=== PATIENT | female | born 1950 | race Caucasian/White ===

== ENCOUNTER → 2017-02-03 | Outpatient (CLI) | payer OTHER, MEDICARE ==
[~2017-02-03] MED LIST: ASPI81TA28 PO; CALC-51 PO; CLR10 PO; ENAL20TA PO; FENO48TA9 PO; HYDR-5688 PO; OMEG10007 PO; PRLSR20 PO; SIMV20TA2 PO
[2017-02-03 13:28] LABS: BASO % 0.3 %; BASO ABS # 0.03 K/uL (0-0.2); COMPLETE YES; EOS % 2.6 %; HEMATOCRIT 41.3 % (37-47); IG% 0.3 %; LYMPH % 28.7 %; LYMPH ABS # 2.75 K/uL (1.2-3.4); MEAN CELL VOLUME 93.7 fL (80-100); MEAN CORPUSCULAR HEMOGLOBIN 30.6 pg (25-34); MEAN CORPUSCULAR HGB CONC 32.7 g/dl (32-36); MONO % 3.3 %; NEUT % 64.8 %; PLATELET COUNT 455 K/uL (130-400); RED BLOOD COUNT 4.41 M/uL (4.2-5.4); WHITE BLOOD COUNT 9.57 K/uL (4.8-10.8)
[2017-02-03 13:56] LABS: BLOOD UREA NITROGEN 12 mg/dl (7-18); BUN/CREATININE RATIO 12.3 (10-20); CALCIUM 9.5 mg/dl (8.5-10.1); CARBON DIOXIDE 28 mmol/L (21-32); CHLORIDE 105 mmol/L (98-107); GLUCOSE 232 mg/dl (70-99); POTASSIUM 3.6 mmol/L (3.5-5.1); SODIUM 139 mmol/L (136-145)
== END | disposition home or self-care (01) ==
LOC: C.CPL 12:52
PROVIDERS: ATTEND Orthopaedic Surgery
DX: M25.562 Pain in left knee (principal)

== ENCOUNTER → 2017-02-13 | Day surgery (SDC) | payer OTHER, MEDICARE ==
[2017-02-11 09:02] VITALS: Ht 162.6 cm; Wt 68.2 kg
[~2017-02-13] VITALS: Ht 162.6 cm; Wt 68.2 kg
[~2017-02-13] MED LIST changes: +ATROPINE SULFATE 0.1 MG/ML 5ML SYR IV PRN; +CEFAZOLIN 2000 MG/60 ML D5W IV SCH; +DEXAMETHASONE SOD INJ 4 MG/ML VIAL ONE; +EpHEDrine SULFATE INJ 50 MG/ML AMP IV PRN; +EpINEphrine INJ 1MG/ML AMP 1 MG/ML AMP ONE; +FENTANYL CITRATE INJ 50 MCG/1 ML 2 ML VIAL IV PRN; +FENTANYL CITRATE INJ 50 MCG/1 ML 2 ML VIAL ONE; +HYDROCODONE/ACETAMOPHEN 5/325MG TAB PO PRN; +HYDROmorphone INJ 1 MG/ML SYR IV PRN; +KETOROLAC TROMETHAMINE 30 MG/ML VIAL ONE; +LACTATED RINGER'S 1000ML 1,000 ML IV SCH; +LIDOCAINE HCL 2% 2 ML VIAL (20MG/ML) ONE; +MIDAZOLAM HCL 1 MG/ML 2ML VIAL ONE; +ONDANSETRON INJ 2 MG/ML 2 ML VIAL IV PRN; +ONDANSETRON INJ 2 MG/ML 2 ML VIAL ONE; +PROPOFOL IV EMULSION 10 MG/ML 20 ML VIAL IV ONE; +ROPIVACAINE 0.5% 5 MG/ML 30 ML VIAL ONE; +SODIUM CHLORIDE 0.9% 1000ML 1,000 ML IV SCH
--- NOTE | 2017-02-13 06:47 | History & Physical Bridge - [place] ---
H&P Re-Evaluation Bridge Note: I have examined the patient, reviewed the History & Physical and in the interval since the performance of the History & Physical I have noted the following changes of clinical significance: No changes noted
--- NOTE | 2017-02-13 07:41 | Discharge Instructions-SurgCtr ---
Discharge Instructions Date of Service Feb 13, 2017. Visit Reason for Visit: Left Knee Synovitis, Pain Discharge Discharge Diagnosis / Problem: SAME ABOVE Discharge Goals Goal(s): Decrease discomfort, Improve function Medications Stopped Medications Name(s): fish oil, last dose 02/13/17 Restart Stopped Medication(s): MAY RESTART 02/13/2017 Activity Recommendations Activity Limitations: as noted below Lifting Limitations: gradually increase as tolerated Exercise/Sports Limitations: gradually increase as tolerated Weightbearing Status: Left weightbearing (as tolerated) Anesthesia . Post Anesthesia Instructions: If you have had General Anesthesia or IV Sedation: * Do not drive today. * Resume driving when surgeon permits. * Do not make important decisions or sign legal documents today. * Call surgeon for: 1. Temperature elevations greater than 101 degrees F. 2. Uncontrollable pain. 3. Excessive bleeding. 4. Persistent nausea and vomiting. 5. Medication intolerance (nausea, vomiting or rash). * For nausea and vomiting use only clear liquids such as: tea, soda, bouillon until nausea subsides, then gradually increase diet as tolerated. * If you have any concerns or questions, call your surgeon's office. If physician is unavailable and it is an emergency, call 911 or go to the nearest emergency room. . Instructions / Follow-Up Instructions / Follow-Up MEDICATIONS: * Resume previous medications unless instructed otherwise by your surgeon. * Always take pain medication on a full stomach or with food to avoid upset stomach. * Do not drink alcohol or drive while taking narcotics. * Ibuprofen or Tylenol may be taken if narcotic not needed. SPECIAL CARE INSTRUCTIONS: __ None _X_ Keep extremity elevated and iced x 48 hours; apply ice 20-30 minutes 8-10 times/day. May remove at night. _X_ Crutches _X_ May discard when able __ Brace/Post-op shoe __ 24 hrs/day __ Remove at night _X_ Dressing __ Maintain until seen in office, may shower with plastic over site _X_ Remove dressings in 24-48 hours and then may shower _X_ Cover incisions with band-aids after showering __ Do not remove steri-strips Call physician if chills or temperature rises above 102 degrees or pain unrelieved by prescribed pain medications. Office [phone] Diet Recommendations Home Diet: no limitations Fluid Restriction: None Procedures Procedures Performed: Left Knee Arthroscopic Extensive Debridement Pending Studies Studies pending at discharge: no Work Instructions Return To Work: after follow-up Medical Emergencies . Who to Call and When: Medical Emergencies: If at any time you feel your situation is an emergency, please call 911 immediately. . Non-Emergent Contact Non-Emergency issues call your: Primary Care Provider Call Non-Emergent contact if: you have a fever, temperature is above 101.5 . . "Provider Documentation" section prepared by Luiz Zuniga. .
--- NOTE | 2017-02-13 07:52 | OPERATIVE REPORT ---
DATE OF OPERATION: 02/13/2017 PREOPERATIVE DIAGNOSIS: Fat pad impingement, possible lateral meniscal tear of the left knee. POSTOPERATIVE DIAGNOSIS: Anterior lateral fat pad impingement of the left knee without evidence of meniscus tear. PROCEDURE: Left knee diagnostic arthroscopy with extensive synovectomy. SURGEON: Dr. Praveen Collazo. METAL FABRICATOR HELPER: Parvez Zuniga PA-C, whose assistance was necessary for positioning of the knee and helping with instrumentation. ANESTHESIA: General. COMPLICATIONS: None. CONDITION: Stable to PACU. INDICATIONS: Azra is a pleasant 66-year-old female who presented to my office with chronic left knee pain. All of her pain was located over the anterolateral fat pad region. It hurt to palpation. Cortisone injections helped briefly but her pain always returned. She is unable to get an MRI because of a pacemaker. After failing several years of conservative treatment, she elected to undergo arthroscopy. OPERATION AND FINDINGS: On 02/13/2017 she arrived at [facility] for the above procedure. She was seen in the preoperative holding area and the operative extremity was identified and signed. She was taken back to the operating room and put under general anesthesia. The left knee was prepped and draped in sterile fashion. Time-out was done and the patient and operative extremity was properly identified. A scope was introduced in the lateral parapatellar portal. Diagnostic arthroscopy showed no loose bodies in the suprapatellar pouch. There was minimal synovitis there. The patella and the trochlea looked good. There was synovitis involving the entire fat pad mostly in the anterior lateral aspect. The scope was brought into the medial compartment. A medial parapatellar portal was made under direct visualization and a probe was used to probe the medial meniscus. The medial meniscus was intact. The cartilage was intact on the medial side. A scope was brought in the trochlea. ACL and PCL were intact. The scope was brought into lateral compartment. The lateral meniscus was intact and the cartilage was all intact. There was a lot of redness and inflammation of the anterolateral fat pad. A shaver was used to start a synovectomy. Time was spent removing only the inflamed portions of the fat pad in the anterolateral aspect and taking time to inspect the lateral gutter. The knee was brought into full extension and time was spent removing any synovitis that was getting impinged within the patellofemoral joint. The scope was then placed in the medial parapatellar portal. Repeat diagnostic arthroscopy showed further synovitis. A shaver was used to only remove the inflamed tissue. I removed as little fat pad as possible. Final diagnostic arthroscopy showed no additional pathology. Arthroscopic instruments were removed from the knee. Portal sites were closed with 3-0 nylon. The knee was injected with 30 mL of Naropin with epinephrine and Toradol. She was then placed in a soft compressive dressing, extubated, transferred to a [facility] and taken to the postanesthesia care unit in stable condition. She tolerated the procedure well. I attest to the content of the Intraoperative Record and any orders documented therein. Any exceptions are noted below. JUNIOR
[2017-02-13 08:29] VITALS: TEMP 36.4
[2017-02-13 09:01] VITALS: BP 145/75; PULSE 82; O2SAT 95
--- NOTE | 2017-02-13 09:31 | Anesthesiology Progress Note ---
Anesthesia Post Op Note Date & Time Feb 13, 2017 at 09:31 Vital Signs Pain Intensity: 0 Vital Signs Past 12 Hours Date Time Temp Pulse Resp B/P (MAP) Pulse Ox O2 Delivery O2 Flow Rate FiO2 02/13/17 09:01 82 16 145/75 (98) 95 Room Air 02/13/17 08:29 36.4 79 16 131/73 (92) 95 Room Air 02/13/17 08:20 36.4 02/13/17 08:17 82 18 97 02/13/17 08:17 83 18 02/13/17 08:16 Room Air 02/13/17 08:15 146/77 (92) 02/13/17 08:12 87 17 96 02/13/17 08:12 92 17 02/13/17 08:10 150/72 (89) 02/13/17 08:07 95 11 98 02/13/17 08:07 97 11 02/13/17 08:05 131/67 (86) 02/13/17 08:02 88 16 98 02/13/17 08:02 87 16 02/13/17 08:00 135/71 (82) 02/13/17 07:57 86 17 02/13/17 07:57 85 17 98 02/13/17 07:55 128/67 (85) 02/13/17 07:52 90 12 02/13/17 07:52 89 12 97 02/13/17 07:50 134/66 (77) 02/13/17 07:47 93 18 02/13/17 07:47 93 18 97 02/13/17 07:45 132/67 (85) 02/13/17 07:42 99 14 96 02/13/17 07:42 99 14 02/13/17 07:41 134/68 (86) 02/13/17 07:39 36.2 99 16 02/13/17 06:29 36.7 72 22 147/75 (99) 94 Room Air Notes Mental Status: alert / awake / arousable, participated in evaluation Pt Amnestic to Procedure: Yes Nausea / Vomiting: adequately controlled Pain: adequately controlled Airway Patency, RR, SpO2: stable & adequate BP & HR: stable & adequate Hydration State: stable & adequate Anesthetic Complications: no major complications apparent
--- NOTE | 2017-02-13 12:43 | [facility] Post Operative Brief Note ---
Immediate Operative Summary Operative Date Feb 13, 2017. Pre-Operative Diagnosis Left Knee Synovitis, Pain Post-Operative Diagnosis Same Procedure(s) Performed Left Knee Arthroscopic Extensive Debridement Surgeon Dr. Collazo Theatre Professor Surgeon(s) Anabelle Zuniga PA-C Estimated Blood Loss 5ml Findings as above Specimens None Complication(s) None Disposition Recovery Room / PACU
== END | disposition home or self-care (01) ==
LOC: X.SURG 06:09
PROVIDERS: ATTEND Orthopaedic Surgery
DX: M25.862 Other specified joint disorders, left knee (principal); I10 Essential (primary) hypertension; E78.00 Pure hypercholesterolemia, unspecified

== ENCOUNTER → 2017-04-02 | Outpatient (CLI) | payer OTHER, MEDICARE ==
[~2017-04-02] MED LIST changes: -ATROPINE SULFATE 0.1 MG/ML 5ML SYR IV PRN; -CEFAZOLIN 2000 MG/60 ML D5W IV SCH; -CLR10 PO; -DEXAMETHASONE SOD INJ 4 MG/ML VIAL ONE; -EpHEDrine SULFATE INJ 50 MG/ML AMP IV PRN; -EpINEphrine INJ 1MG/ML AMP 1 MG/ML AMP ONE; -FENTANYL CITRATE INJ 50 MCG/1 ML 2 ML VIAL IV PRN; -FENTANYL CITRATE INJ 50 MCG/1 ML 2 ML VIAL ONE; -HYDROCODONE/ACETAMOPHEN 5/325MG TAB PO PRN; -HYDROmorphone INJ 1 MG/ML SYR IV PRN; -KETOROLAC TROMETHAMINE 30 MG/ML VIAL ONE; -LACTATED RINGER'S 1000ML 1,000 ML IV SCH; -LIDOCAINE HCL 2% 2 ML VIAL (20MG/ML) ONE; -MIDAZOLAM HCL 1 MG/ML 2ML VIAL ONE; -ONDANSETRON INJ 2 MG/ML 2 ML VIAL IV PRN; -ONDANSETRON INJ 2 MG/ML 2 ML VIAL ONE; -PROPOFOL IV EMULSION 10 MG/ML 20 ML VIAL IV ONE; -ROPIVACAINE 0.5% 5 MG/ML 30 ML VIAL ONE; -SODIUM CHLORIDE 0.9% 1000ML 1,000 ML IV SCH
[2017-04-02 13:14] LABS: BASO % 0.5 %; BASO ABS # 0.05 K/uL (0-0.2); COMPLETE YES; EOS % 2.2 %; HEMATOCRIT 41.5 % (37-47); IG% 0.2 %; LYMPH % 27.1 %; LYMPH ABS # 2.47 K/uL (1.2-3.4); MEAN CELL VOLUME 90.6 fL (80-100); MEAN CORPUSCULAR HEMOGLOBIN 30.6 pg (25-34); MEAN CORPUSCULAR HGB CONC 33.7 g/dl (32-36); MEAN PLATELET VOLUME 10.7 fL (7.4-10.4); MONO % 9.8 %; NEUT % 60.2 %; PLATELET COUNT 477 K/uL (130-400); RED BLOOD COUNT 4.58 M/uL (4.2-5.4); WHITE BLOOD COUNT 9.11 K/uL (4.8-10.8)
[2017-04-02 13:51] LABS: BLOOD UREA NITROGEN 16 mg/dl (7-18); BUN/CREATININE RATIO 18.1 (10-20); CALCIUM 9.2 mg/dl (8.5-10.1); CARBON DIOXIDE 24 mmol/L (21-32); CHLORIDE 110 mmol/L (98-107); CREATININE 0.86 mg/dl (0.60-1.20); GLUCOSE 91 mg/dl (70-99); POTASSIUM 4.2 mmol/L (3.5-5.1); SODIUM 141 mmol/L (136-145)
== END | disposition home or self-care (01) ==
LOC: C.LABBC 10:34
PROVIDERS: ATTEND Orthopaedic Surgery
DX: M65.312 Trigger thumb, left thumb (principal)